=== PATIENT | male | born 1940 | race Caucasian/White ===

== ENCOUNTER 2019-05-27 11:31 | Outpatient (CLI) | payer MEDICARE, OTHER, SELFPAY ==
[2019-05-27 12:45] LABS: Eosinophils Absolute Auto 0.1 K/mm3 (0-0.3); Eosinophils Percent Auto 2.2 % (0-4.4); Hematocrit 37.6 % (42.0-52.0); Immature Granulocyte Absolute 0.02 K/mm3 (0.00-0.031); Immature Granulocyte Percent A 0.5 % (0-0.5); Lymphocytes Absolute Auto 1.12 K/mm3 (0.9-3.2); Lymphocytes Percent Auto 27.5 % (18.3-44.2); Mean Corpuscular HGB Conc 34.6 g/dl (32-36); Mean Corpuscular Hemoglobin 36.3 pg (26-34); Mean Platelet Volume 10.4 fl (7.4-10.4); Monocytes Absolute Auto 0.5 K/mm3 (0.1-0.6); Monocytes Percent Auto 11.5 % (2.6-8.5); Neutrophils Absolute Auto 2.3 K/mm3 (1.3-6.7); Neutrophils Percent Auto 57.3 % (45.5-73.1); Platelet Count Result 101 k/mm3 (150-375); Red Blood Count 3.58 M/mm3 (4.6-6.20); Red Cell Distribution Width 14.2 % (11.5-14.5); White Blood Count 4.1 K/mm3 (4.5-10.0)
[2019-05-27 12:54] LABS: Alanine Aminotransferase 16 U/L (4-50); Albumin Level 3.8 g/dL (3.5-5.1); Alkaline Phosphatase 61 U/L (38-126); Aspartate Amino Transferase 27 U/L (17-59); Bilirubin,Total 0.7 mg/dL (0.2-1.3); Blood Urea Nitrogen 17 mg/dL (9-20); Calcium 9.2 mg/dL (8.4-10.2); Carbon Dioxide 27 mmol/L (22-30); Chloride 103 mmol/L (98-107); Cholesterol 143 mg/dL (0-200); Estimated Glomerular Filt Rate > 60; Glucose 96 mg/dL (75-110); HDL Direct 60 mg/dL; Potassium 4.9 mmol/L (3.4-5.0); Sodium 141 mmol/L (137-145); Triglycerides 55 mg/dL (<150)
[2019-05-27 13:05] LABS: LDL Cholesterol Direct 78 mg/dL
[2019-05-27 13:23] LABS: Prostate Specific Antigen 0.4 ng/mL (< OR = 4.0)
[2019-05-27 14:00] LABS: Folic Acid > 20.0 ng/mL (2.76->20)
== END 2019-05-27 11:32 | disposition home or self-care (01) ==
PROVIDERS: PCP Internal Medicine; Visit Provider Internal Medicine
DX: D61.818 Other pancytopenia (principal); E03.9 Hypothyroidism, unspecified; E78.2 Mixed hyperlipidemia; Z12.5 Encounter for screening for malignant neoplasm of prostate
CPT/HCPCS: 36415; 80053; 80061; 82607; 82746; 84153; 84443; 85025; G0103

== ENCOUNTER 2019-08-19 11:48 | Outpatient (CLI) | payer MEDICARE, OTHER, SELFPAY ==
[2019-08-19 11:58] LABS: Basophils Percent Auto 0.5 % (0.2-1.2); Eosinophils Absolute Auto 0.2 K/mm3 (0-0.3); Eosinophils Percent Auto 2.9 % (0-4.4); Hematocrit 37.6 % (42.0-52.0); Hemoglobin 13.1 g/dL (14.0-18.0); Immature Granulocyte Absolute 0.02 K/mm3 (0.00-0.031); Immature Granulocyte Percent A 0.4 % (0-0.5); Lymphocytes Absolute Auto 1.69 K/mm3 (0.9-3.2); Lymphocytes Percent Auto 30.8 % (18.3-44.2); Mean Corpuscular HGB Conc 34.8 g/dl (32-36); Mean Corpuscular Hemoglobin 36.6 pg (26-34); Mean Platelet Volume 9.3 fl (7.4-10.4); Monocytes Absolute Auto 0.5 K/mm3 (0.1-0.6); Monocytes Percent Auto 9.5 % (2.6-8.5); Neutrophils Absolute Auto 3.1 K/mm3 (1.3-6.7); Neutrophils Percent Auto 55.9 % (45.5-73.1); Platelet Count Result 105 k/mm3 (150-375); Red Blood Count 3.58 M/mm3 (4.6-6.20); Red Cell Distribution Width 13.2 % (11.5-14.5); White Blood Count 5.5 K/mm3 (4.5-10.0)
[2019-08-19 12:02] LABS: Blood Urea Nitrogen 13 mg/dL (8-26); Carbon Dioxide 27 mmol/L (22-30); Chloride 103 mmol/L (98-109); Estimated Glomerular Filt Rate > 60; Glucose 99 mg/dL (70-105); Potassium 4.2 mmol/L (3.5-4.9); Sodium 141 mmol/L (138-146)
[2019-08-19 16:37] LABS: Alanine Aminotransferase 19 U/L (4-50); Alkaline Phosphatase 63 U/L (38-126); Aspartate Amino Transferase 30 U/L (17-59); Bilirubin,Total 0.7 mg/dL (0.2-1.3); Blood Urea Nitrogen 13 mg/dL (9-20); Calcium 8.5 mg/dL (8.4-10.2); Carbon Dioxide 28 mmol/L (22-30); Chloride 106 mmol/L (98-107); Estimated Glomerular Filt Rate > 60; Glucose 92 mg/dL (75-110); Potassium 4.2 mmol/L (3.4-5.0); Sodium 138 mmol/L (137-145)
== END 2019-08-19 11:49 | disposition home or self-care (01) ==
LOC: ANHLAB 11:50
PROVIDERS: PCP Internal Medicine; Visit Provider Internal Medicine Hematology & Oncology
DX: D61.818 Other pancytopenia (principal)
CPT/HCPCS: 36415; 80048; 80053; 85025

== ENCOUNTER 2019-12-31 01:14 | Outpatient (CLI) | payer MEDICARE, OTHER, SELFPAY ==
[2019-12-31 18:28] LABS: SARS-CoV-2 RNA PCR Negative
== END 2019-12-31 01:15 | disposition home or self-care (01) ==
LOC: ANHCOVIDDT 01:15
PROVIDERS: PCP Internal Medicine; Visit Provider Internal Medicine Critical Care Medicine
DX: R09.89 Other specified symptoms and signs involving the circulatory and respiratory systems (principal); Z20.828 Contact with and (suspected) exposure to other viral communicable diseases
CPT/HCPCS: 87635; C9803; U0003

== ENCOUNTER 2020-01-02 09:55 | Outpatient (CLI) | payer MEDICARE, OTHER, SELFPAY ==
--- NOTE | 2020-01-22 00:01 | SLEEP_ITS ---
NOCTURNAL POLYSOMNOGRAM DATE OF STUDY: 01/02/2020 REASON FOR THE STUDY: Hypersomnia. HISTORY: The patient is a 79-year-old man, 66 inches tall, weighing 200 pounds with a body mass index of 32.3. He has Alzheimer disease. Dr. Webber's note indicates that he snores at night, naps intermittently throughout the day, has multiple medical issues. This gentleman filled out most of his sleep survey. He does not have trouble sleeping with a cold, does not gasp for breath at night, does not have breathing problems at night witnessed by others and does not sweat excessively at night. He does not notice his heart pounding or beating irregularly at night. He occasionally falls asleep during the day, never while driving, never involuntarily, never with physical effort. He does not have loss of muscle tone with strong emotion. He is retired, does not have daytime difficulties due to excessive sleepiness. He does not feel paralyzed on waking or falling asleep. He does not have vivid dreamlike scenes upon awakening or falling asleep. He is never afraid to go to sleep. He denies nightmares. He does not recall his dreams. He denies racing thoughts, feelings of sadness, depression, anxiety, and does not have muscular tension or noticed parts of his body jerking. He does not kick at night. He denies crawly achy feelings in his legs. He does not have leg pain at night. He denies morning jaw pain and grinding his teeth at night. He is not bothered by pain during the day and does not wake up with pain during the night. He denies feeling stiff in the morning with sore achy muscles or pain in the neck and spine. He has memory problems. Bedtime is between 11 and 12 p.m., falling asleep quickly and apparently does not wake up during the night. He wakes through the morning somewhere between 9 and 11:00 a.m. Weekend is the same. He gets somewhere between 8 and 12 hours of sleep at night. He does take naps. A short nap may be refreshing. He feels good in the morning. MEDICAL COMORBIDITIES: Hypothyroidism, hypertension, myasthenia gravis. MEDICATIONS: 1. Azathioprine 50 mg daily for myasthenia gravis. 2. Aricept 10 mg for Alzheimer disease. 3. Isosorbide mononitrate 30 mg as needed for chest pain. 4. Synthroid daily. 5. Lisinopril 10 mg a day. 6. Simvastatin 20 mg a day. HABITS: Tobacco quit 50 years ago. Caffeine, 3 beverages a day. Alcohol, 2 beverages a day. DESCRIPTION OF THE STUDY: On the [place] Sleepiness Scale, the score is 5. This was conducted as a full night attended nocturnal polysomnogram using the [employer] Multiple Channel System including EOG, EEG, submental EMG, EKG, nasal and oral airflow using thermistors and nasal pressure sensors, chest and abdominal belts, body position data and pulse oximetry. The study was scored using [facility] guidelines. Duration of the study was 493 minutes. Sleep time was 416.5 minutes. Sleep efficiency was 84.5%. Sleep latency was normal at 17.3 minutes. REM latency was normal at 130.5 minutes. There were 16 awakenings and the patient spent 12.5% of the study awake after sleep onset, that was 59 minutes. Sleep architecture showed 8.4% stage 1 sleep, 63% stage 2 sleep. No stage 3 sleep and 16.2% stage REM. He spent 25.4% of this portion supine. The remainder was non-supine. Sleep architecture showed 5 REM episodes, all of them were rather small. There was some fragmentation of sleep. Overall the sleep architecture was relatively normal for the patient's age. The apnea-hypopnea index was 2.0. The obstructive index is 1.9, central index 0.1. In supine REM, he had 1 obstructive hypopnea. In non-supine REM, 3 obstructive hypopneas. In non-supine non-REM, he had 1 obstructive apnea, 1 central apnea, 1 obstructive hypopnea. In non-supine n
== END 2020-01-02 09:56 | disposition home or self-care (01) ==
LOC: ANHCSM 09:57
PROVIDERS: PCP Internal Medicine; Visit Provider Internal Medicine
DX: G47.10 Hypersomnia, unspecified (principal); Z68.32 Body mass index [BMI] 32.0-32.9, adult; I10 Essential (primary) hypertension; E78.5 Hyperlipidemia, unspecified; G70.00 Myasthenia gravis without (acute) exacerbation; G30.9 Alzheimer's disease, unspecified; F02.80 Dementia in other diseases classified elsewhere, unspecified severity, without behavioral disturbance, psychotic disturbance, mood disturbance, and anxiety
CPT/HCPCS: 95810

== ENCOUNTER 2020-02-18 15:05 | Outpatient (CLI) | payer MEDICARE, OTHER, SELFPAY ==
[2020-02-18 15:20] LABS: Basophils Absolute Auto 0.1 K/mm3 (0.0-0.1); Eosinophils Absolute Auto 0.2 K/mm3 (0-0.3); Eosinophils Percent Auto 3.1 % (0-4.4); Hematocrit 33.9 % (42.0-52.0); Immature Granulocyte Absolute 0.02 K/mm3 (0.00-0.031); Immature Granulocyte Percent A 0.4 % (0-0.5); Lymphocytes Absolute Auto 1.48 K/mm3 (0.9-3.2); Mean Corpuscular HGB Conc 35.4 g/dl (32-36); Mean Corpuscular Hemoglobin 34.7 pg (26-34); Mean Platelet Volume 9.6 fl (7.4-10.4); Monocytes Absolute Auto 0.5 K/mm3 (0.1-0.6); Monocytes Percent Auto 9.8 % (2.6-8.5); Neutrophils Absolute Auto 2.6 K/mm3 (1.3-6.7); Neutrophils Percent Auto 54.7 % (45.5-73.1); Platelet Count Result 84 k/mm3 (150-375); Red Blood Count 3.46 M/mm3 (4.6-6.20); Red Cell Distribution Width 13.9 % (11.5-14.5); White Blood Count 4.8 K/mm3 (4.5-10.0)
== END 2020-02-18 15:06 | disposition home or self-care (01) ==
LOC: ANHLAB 15:08
PROVIDERS: PCP Internal Medicine; Visit Provider Internal Medicine Hematology & Oncology
DX: D61.818 Other pancytopenia (principal)
CPT/HCPCS: 36415; 85025

== ENCOUNTER 2020-06-17 14:14 | Outpatient (CLI) | payer MEDICARE, OTHER, SELFPAY ==
[2020-06-17 14:29] LABS: Basophils Absolute Auto 0.1 K/mm3 (0.0-0.1); Eosinophils Absolute Auto 0.2 K/mm3 (0-0.3); Eosinophils Percent Auto 3.5 % (0-4.4); Hematocrit 38.8 % (42.0-52.0); Hemoglobin 13.5 g/dL (14.0-18.0); Immature Granulocyte Absolute 0.01 K/mm3 (0.00-0.031); Immature Granulocyte Percent A 0.2 % (0-0.5); Lymphocytes Absolute Auto 1.74 K/mm3 (0.9-3.2); Lymphocytes Percent Auto 34.2 % (18.3-44.2); Mean Corpuscular HGB Conc 34.8 g/dl (32-36); Mean Corpuscular Hemoglobin 33.6 pg (26-34); Mean Corpuscular Volume 96.5 fl (80-100); Mean Platelet Volume 9.4 fl (7.4-10.4); Monocytes Absolute Auto 0.6 K/mm3 (0.1-0.6); Neutrophils Absolute Auto 2.6 K/mm3 (1.3-6.7); Neutrophils Percent Auto 50.1 % (45.5-73.1); Platelet Count Result 111 k/mm3 (150-375); Red Blood Count 4.02 M/mm3 (4.6-6.20); Red Cell Distribution Width 13.9 % (11.5-14.5); White Blood Count 5.1 K/mm3 (4.5-10.0)
[2020-06-17 14:32] LABS: Blood Urea Nitrogen 13 mg/dL (8-26); Carbon Dioxide 29 mmol/L (22-30); Chloride 104 mmol/L (98-109); Estimated Glomerular Filt Rate > 60; Glucose 97 mg/dL (70-105); Potassium 3.5 mmol/L (3.5-4.9); Sodium 144 mmol/L (138-146)
[2020-06-17 17:00] LABS: Alanine Aminotransferase 18 U/L (4-50); Alkaline Phosphatase 67 U/L (38-126); Anion Gap 7 mmol/L (8-16); Aspartate Amino Transferase 29 U/L (17-59); Bilirubin,Total 0.6 mg/dL (0.2-1.3); Blood Urea Nitrogen 14 mg/dL (9-20); Calcium 8.8 mg/dL (8.4-10.2); Carbon Dioxide 30 mmol/L (22-30); Chloride 106 mmol/L (98-107); Estimated Glomerular Filt Rate > 60; Glucose 96 mg/dL (75-110); Potassium 3.7 mmol/L (3.4-5.0); Sodium 143 mmol/L (137-145)
== END 2020-06-17 14:15 | disposition home or self-care (01) ==
PROVIDERS: PCP Internal Medicine; Visit Provider Internal Medicine Hematology & Oncology
DX: D61.818 Other pancytopenia (principal)
CPT/HCPCS: 36415; 80048; 80053; 85025

== ENCOUNTER 2020-10-11 15:19 | Outpatient (CLI) | payer MEDICARE, OTHER, SELFPAY ==
--- NOTE | 2020-10-11 15:44 | ECG_ITS ---
Measurements Intervals [place] Rate: 98 P: UT: 0 QRS: -3 QRSD: 78 T: 15 QT: 370 QTc: 472 Interpretive Statements ATRIAL FIBRILLATION VENTRICULAR PREMATURE COMPLEX ABNORMAL ECG Electronically Signed On 10-11-2020 15:59:58 CDT by Sanjiv Miranda D.O.
== END 2020-10-11 15:20 | disposition home or self-care (01) ==
PROVIDERS: PCP Internal Medicine; Visit Provider Internal Medicine
DX: I10 Essential (primary) hypertension (principal); R94.31 Abnormal electrocardiogram [ECG] [EKG]
CPT/HCPCS: 93005

== ENCOUNTER 2020-12-21 14:31 | Outpatient (CLI) | payer MEDICARE, OTHER, SELFPAY ==
[2020-12-21 14:49] LABS: Blood Urea Nitrogen 15 mg/dL (8-26); Carbon Dioxide 28 mmol/L (22-30); Chloride 106 mmol/L (98-109); Estimated Glomerular Filt Rate 53; Glucose 90 mg/dL (70-105); Potassium 4.2 mmol/L (3.5-4.9); Sodium 142 mmol/L (138-146)
[2020-12-21 14:53] LABS: Basophils Absolute Auto 0.1 K/mm3 (0.0-0.1); Basophils Percent Auto 0.9 % (0.2-1.2); Eosinophils Absolute Auto 0.2 K/mm3 (0-0.3); Eosinophils Percent Auto 3.6 % (0-4.4); Hematocrit 37.8 % (42.0-52.0); Hemoglobin 13.1 g/dL (14.0-18.0); Immature Granulocyte Absolute 0.01 K/mm3 (0.00-0.031); Immature Granulocyte Percent A 0.2 % (0-0.5); Lymphocytes Absolute Auto 1.69 K/mm3 (0.9-3.2); Lymphocytes Percent Auto 30.2 % (18.3-44.2); Mean Corpuscular HGB Conc 34.7 g/dl (32-36); Mean Corpuscular Hemoglobin 31.9 pg (26-34); Mean Platelet Volume 9.4 fl (7.4-10.4); Monocytes Absolute Auto 0.6 K/mm3 (0.1-0.6); Monocytes Percent Auto 11.1 % (2.6-8.5); Platelet Count Result 118 k/mm3 (150-375); Red Blood Count 4.11 M/mm3 (4.6-6.20); Red Cell Distribution Width 13.2 % (11.5-14.5); White Blood Count 5.6 K/mm3 (4.5-10.0)
[2020-12-21 18:38] LABS: Alanine Aminotransferase 22 U/L (4-50); Albumin Level 3.9 g/dL (3.5-5.1); Alkaline Phosphatase 69 U/L (38-126); Anion Gap 7 mmol/L (8-16); Aspartate Amino Transferase 33 U/L (17-59); Bilirubin,Total 0.6 mg/dL (0.2-1.3); Blood Urea Nitrogen 17 mg/dL (9-20); Calcium 9.3 mg/dL (8.4-10.2); Carbon Dioxide 24 mmol/L (22-30); Chloride 109 mmol/L (98-107); Estimated Glomerular Filt Rate > 60; Glucose 95 mg/dL (65-110); Potassium 4.3 mmol/L (3.4-5.0); Sodium 140 mmol/L (137-145)
== END 2020-12-21 14:32 | disposition home or self-care (01) ==
PROVIDERS: PCP Internal Medicine; Visit Provider Internal Medicine Hematology & Oncology
DX: D61.818 Other pancytopenia (principal)
CPT/HCPCS: 36415; 80048; 80053; 85025; 85055

== ENCOUNTER 2021-09-01 08:54 | Outpatient (CLI) | payer MEDICARE, OTHER, SELFPAY ==
[2021-09-01 09:43] LABS: Basophils Absolute Auto 0.1 K/mm3 (0.0-0.1); Basophils Percent Auto 0.9 % (0.2-1.2); Eosinophils Absolute Auto 0.3 K/mm3 (0-0.3); Eosinophils Percent Auto 4.5 % (0-4.4); Hematocrit 39.9 % (42.0-52.0); Hemoglobin 13.6 g/dL (14.0-18.0); Immature Granulocyte Absolute 0.02 K/mm3 (0.00-0.031); Immature Granulocyte Percent A 0.3 % (0-0.5); Immature Platelet Fraction Pct 3.2 % (0.9-11.2); Lymphocytes Percent Auto 31.2 % (18.3-44.2); Mean Corpuscular HGB Conc 34.1 g/dl (32-36); Mean Corpuscular Hemoglobin 32.1 pg (26-34); Mean Corpuscular Volume 94.1 fl (80-100); Mean Platelet Volume 9.8 fl (7.4-10.4); Monocytes Absolute Auto 0.6 K/mm3 (0.1-0.6); Monocytes Percent Auto 8.7 % (2.6-8.5); Neutrophils Absolute Auto 3.5 K/mm3 (1.3-6.7); Neutrophils Percent Auto 54.4 % (45.5-73.1); Platelet Count Result 142 k/mm3 (150-375); Red Blood Count 4.24 M/mm3 (4.6-6.20); Red Cell Distribution Width 13.6 % (11.5-14.5); White Blood Count 6.4 K/mm3 (4.5-10.0)
[2021-09-01 10:05] LABS: Alanine Aminotransferase 19 U/L (6-50); Albumin Level 4.3 g/dL (3.5-5.1); Alkaline Phosphatase 65 U/L (38-126); Anion Gap 6 mmol/L (8-16); Aspartate Amino Transferase 29 U/L (17-59); Blood Urea Nitrogen 18 mg/dL (9-20); Calcium 8.9 mg/dL (8.4-10.2); Carbon Dioxide 26 mmol/L (22-30); Chloride 106 mmol/L (98-107); Cholesterol 178 mg/dL (0-200); Estimated Glomerular Filt Rate > 60; Glucose 98 mg/dL (65-110); HDL Direct 41 mg/dL; Potassium 4.4 mmol/L (3.4-5.0); Sodium 138 mmol/L (137-145); Triglycerides 101 mg/dL (<150)
[2021-09-01 10:18] LABS: LDL Cholesterol Direct 104 mg/dL
[2021-09-01 10:37] LABS: Prostate Specific Antigen 0.3 ng/mL (< OR = 4.0)
== END 2021-09-01 08:55 | disposition home or self-care (01) ==
LOC: ANHLAB 08:58
PROVIDERS: PCP Internal Medicine; Visit Provider Internal Medicine
DX: D61.818 Other pancytopenia (principal); E03.9 Hypothyroidism, unspecified; E55.9 Vitamin D deficiency, unspecified; E78.2 Mixed hyperlipidemia; F03.90 Unspecified dementia, unspecified severity, without behavioral disturbance, psychotic disturbance, mood disturbance, and anxiety; I10 Essential (primary) hypertension; I25.10 Atherosclerotic heart disease of native coronary artery without angina pectoris; I48.0 Paroxysmal atrial fibrillation; Z12.5 Encounter for screening for malignant neoplasm of prostate
CPT/HCPCS: 36415; 80053; 80061; 82306; 84153; 84443; 85025; 85055; G0103

== ENCOUNTER 2021-09-19 14:51 | Outpatient (CLI) | payer MEDICARE, OTHER, SELFPAY ==
[2021-09-19 15:05] LABS: Basophils Absolute Auto 0.1 K/mm3 (0.0-0.1); Basophils Percent Auto 0.9 % (0.2-1.2); Eosinophils Absolute Auto 0.3 K/mm3 (0-0.3); Eosinophils Percent Auto 4.8 % (0-4.4); Hematocrit 38.5 % (42.0-52.0); Hemoglobin 13.2 g/dL (14.0-18.0); Immature Granulocyte Absolute 0.03 K/mm3 (0.00-0.031); Immature Granulocyte Percent A 0.5 % (0-0.5); Lymphocytes Absolute Auto 2.12 K/mm3 (0.9-3.2); Mean Corpuscular HGB Conc 34.3 g/dl (32-36); Mean Corpuscular Hemoglobin 32.2 pg (26-34); Mean Corpuscular Volume 93.9 fl (80-100); Mean Platelet Volume 9.6 fl (7.4-10.4); Monocytes Absolute Auto 0.7 K/mm3 (0.1-0.6); Monocytes Percent Auto 10.9 % (2.6-8.5); Neutrophils Absolute Auto 3.2 K/mm3 (1.3-6.7); Neutrophils Percent Auto 49.9 % (45.5-73.1); Platelet Count Result 131 k/mm3 (150-375); Red Cell Distribution Width 13.5 % (11.5-14.5); White Blood Count 6.4 K/mm3 (4.5-10.0)
[2021-09-19 15:11] LABS: Blood Urea Nitrogen 18 mg/dL (8-26); Carbon Dioxide 26 mmol/L (22-30); Chloride 107 mmol/L (98-109); Estimated Glomerular Filt Rate 53; Glucose 87 mg/dL (70-105); Ionized Calcium (POC) 1.18 mmol/L (1.11-1.31); Sodium 141 mmol/L (138-146)
[2021-09-19 16:50] LABS: Alanine Aminotransferase 16 U/L (6-50); Albumin Level 4.3 g/dL (3.5-5.1); Alkaline Phosphatase 60 U/L (38-126); Anion Gap 5 mmol/L (8-16); Aspartate Amino Transferase 25 U/L (17-59); Bilirubin,Total 0.6 mg/dL (0.2-1.3); Blood Urea Nitrogen 18 mg/dL (9-20); Calcium 8.6 mg/dL (8.4-10.2); Carbon Dioxide 26 mmol/L (22-30); Chloride 109 mmol/L (98-107); Estimated Glomerular Filt Rate 58; Glucose 91 mg/dL (65-110); Sodium 140 mmol/L (137-145)
== END 2021-09-19 14:52 | disposition home or self-care (01) ==
LOC: ANHLAB 14:53
PROVIDERS: PCP Internal Medicine; Visit Provider Internal Medicine Hematology & Oncology
DX: D61.818 Other pancytopenia (principal)
CPT/HCPCS: 36415; 80047; 80053; 85025

== ENCOUNTER 2021-12-14 08:52 | Outpatient (CLI) | payer MEDICARE, OTHER, SELFPAY ==
--- NOTE | ~2021-12-14 | CT_ITS ---
EXAMINATION:CT chest high resolution wo il DATE: 12/14/2021 09:13 INDICATION: Dyspnea. TECHNIQUE: Computed tomography (CT) of the chest was performed without intravenous contrast. Automate d exposure control and iterative reconstruction technique were employed. The dose-length product (DLP ) was 453.51 mGy-cm. COMPARISON: None. FINDINGS: There is moderate emphysema. There is widespread septal thickening in the lungs with a nikole pheral and lower lung predominance associated with groundglass opacities. There are areas of honeycom alonso in all lobes. No pleural effusion. There is left atrial enlargement of the heart. There are oneida nary artery calcifications. No pericardial effusion. There is mild mediastinal lymphadenopathy, likel y reactive. The liver demonstrates surface nodularity, consistent with cirrhosis. Calcifications in t he spleen are consistent with old granulomatous disease. There is moderate thoracic spondylosis. Ther e is a chronic compression fracture of T3. IMPRESSION: 1. Diffuse lung disease, likely a combination of moderate emphysema and chronic interstitial lung dis ease in a pattern of usual interstitial pneumonia (UIP). 2. Cirrhosis of the liver. Reviewed, dictated and finalized at location A. IMPRESSION: 1. Diffuse lung disease, likely a combination of moderate emphysema and chronic interstitial lung disease in a pattern of usual interstitial pneumonia (UIP). 2. Cirrhosis of the liver.
--- NOTE | 2021-12-14 14:32 | WPDSIXMINUTE ---
Six Minute Walk Procedure Procedure Performed Pulmonary Stress Test (6 min walk) Six Minute Walk Six Minute Walk: This is a 6 minute walk test. The test was performed and interpreted in accordance with the 2014 ERS/ATS task force guidelines. Findings: The patient's resting room air oxygen saturation measured by pulse oximetry was 98% and heart rate was 74 bpm. Patient ambulated for 274 meters and oxygen saturation remained 89 to 98%. Heart rate at the end of the study was 103 bpm. The patient did not qualify for supplemental oxygen at rest or with ambulation. There are no prior studies for comparison.
--- NOTE | 2021-12-14 14:33 | WPDPFTINT ---
PFT Procedure Performed PFT Procedure Performed Spirometry with Pre/Post Bronchodilator Plethysmography (Lung Vol) Diffusing Cap (DLCO) Flow Vol Loop PFT Interpretation This is a pulmonary function test with pre and post-bronchodilator spirometry, plethysmography and diffusing capacity. The test was performed and results interpreted in accordance with the 2019 and 2005 ATS/ERS Task Force guidelines respectively using the Global Lung Function Initiative-2012 reference equations. Patient demonstrated good effort and cooperation. Reproducibility criteria were met. The quality of the pre bronchodilator spirometry maneuver was Grade B and post bronchodilator spirometry maneuver was Grade B. Findings: Spirometry: There is decreased maximal expiratory airflow at all lung volumes with concave expiratory flow tracing. The pre bronchodilator FVC is 2.56 L, 75% predicted. The pre bronchodilator FEV1 is 1.68 L, 65% predicted. The pre bronchodilator FEV1: FVC ratio 66%. The post bronchodilator FVC is 2.90 L, representing a 14% increase. The post bronchodilator FEV1 is 1.93 L, representing a 15% increase. The post bronchodilator FEV1: FVC ratio 67%. Plethysmography: The total lung capacity is 4.71 L, 75% predicted. The functional residual capacity is 2.57 L, 77% predicted. The residual volume is 2.15 L, 89% predicted. Diffusion capacity: The diffusing capacity unadjusted for hemoglobin and carboxyhemoglobin is 8.0, 36% predicted. The diffusing capacity adjusted for alveolar volume is 2.25, 58% predicted. Impression: There is a moderate obstructive abnormality with significant improvement after inhaling a single dose of albuterol. The lung volumes are normal. The diffusing capacity unadjusted for hemoglobin and carboxyhemoglobin is severely decreased and remains moderately decreased when adjusted for alveolar volume. There are no prior studies for comparison
== END 2021-12-14 08:53 | disposition home or self-care (01) ==
PROVIDERS: PCP Internal Medicine; Visit Provider Internal Medicine Pulmonary Disease
DX: R06.00 Dyspnea, unspecified (principal); R94.2 Abnormal results of pulmonary function studies; K74.69 Other cirrhosis of liver; R91.8 Other nonspecific abnormal finding of lung field
CPT/HCPCS: 71250; 94060; 94618; 94726; 94729

== ENCOUNTER 2021-12-29 14:49 | Outpatient (CLI) | payer MEDICARE, OTHER, SELFPAY ==
[2021-12-29 15:18] LABS: Appearance Urine Slightly Cloudy (Clear); Bilirubin Urine 1+ (Negative); Blood Urine 1+ (Negative); Color Urine Yellow (Yellow); Glucose Urine UA Negative (Negative); Ketones Urine 1+ mg/dL (Negative); Leukocyte Esterase Ur Negative LEU/UL (Negative); Nitrate Urine Negative (Negative); Specific Grav Ur 1.025 (1.001-1.035)
[2021-12-29 15:23] LABS: Bacteria Urine Trace /hpf; Mucus Urine Few /lpf; Squamous Epithelial Cell Urine Occasional /hpf (Few); WBC Urine 16-20 /hpf
[2021-12-29 15:25] LABS: Add Urine Microscopic? YES
[2021-12-29 15:26] LABS: Protein Urine 1+ mg/dL (Negative)
== END 2021-12-29 14:50 | disposition home or self-care (01) ==
PROVIDERS: PCP Internal Medicine; Visit Provider Internal Medicine
DX: R82.998 Other abnormal findings in urine (principal)
CPT/HCPCS: 81001; 87086; 87088

== ENCOUNTER 2022-03-14 11:36 | Inpatient (IN) | payer MEDICARE, OTHER, SELFPAY ==
[2022-03-14] VITALS (33 sets, daily range): BP systolic 111–164; BP diastolic 71–93; PULSE 88–139; RESP 16–25; TEMP 36.8–37.1; O2SAT 86–100; BMI 32.1
--- NOTE | ~2022-03-14 | XR_ITS ---
EXAMINATION: XR chest 2V DATE: 03/14/2022 12:11 INDICATION: Cough. Fever. TECHNIQUE: Frontal and lateral views of the chest were obtained. COMPARISON: Chest 2 views 06/28/2018, chest CT 12/14/2021 FINDINGS: There is a chronic diffuse interstitial pattern in the lungs. A calcified left lung nodule is consistent with old granulomatous disease. No pleural effusion or pneumothorax. Cardiomegaly is no avril. Surgical clips in the right upper quadrant are likely from cholecystectomy. IMPRESSION: 1. Chronic interstitial lung disease with mild worsening from 06/28/2018. 2. Cardiomegaly. Reviewed, dictated and finalized at location A. IFIED MAINTENANCE WELDER
[2022-03-14 12:29] LABS: Influenza A QL RT-PCR Positive (Negative); Influenza B QL RT-PCR Negative (Negative); SARS-CoV-2 RNA PCR Negative
--- NOTE | 2022-03-14 18:08 | PC.NURSE ---
Brought to ED by daughter for low SPO2 at home. Reports pt has had flu like s/s since Sunday. Pt has known dementia and is A/O x 1
--- NOTE | 2022-03-14 18:21 | ED.GENADULT ---
HPI - General Adult General Chief complaint: Shortness of Breath/Dyspnea Stated complaint: SOB Time Seen by Provider: 03/14/22 18:10 History of Present Illness HPI narrative: This is a 81-year-old male with history of COPD and Alzheimer's presenting ED with difficulty breathing. The patient's daughters at bedside and she is his primary comfort advisor. She says he has been appearing short of breath over the last week. She has seen pulse ox is as low as 80-82 at the house. She has been working with his carpet mechanic to try to treat him outpatient however if down the point where they are uncomfortable treating him further at home. The patient himself is denying any issues. Per the daughter he has been compliant with his medications, he has had a significant amount of coughing with sputum. Denies other complaints. Related Data Home Medications Medication Instructions Recorded Confirmed mecobalamin (vitamin B12) 1,000 1,000 mcg sublingual DAILY 05/27/19 01/27/22 mcg disintegrating tablet,sublingual multivitamin 1 tablet PO DAILY 05/27/19 01/27/22 simvastatin 20 mg tablet 40 mg PO DAILY 12/26/21 01/27/22 Allergies Allergy/AdvReac Type Severity Reaction Status Date / Time NKA Allergy Unknown Unknown Uncoded 01/27/22 10:11 Review of Systems Review of Systems: CONSTITUTIONAL: Denies night sweats. EYES: No eye pain ENT: Denies rhinorrhea CARDIOVASCULAR: Denies palpitations RESPIRATORY: Denies hemoptysis GASTROINTESTINAL: Denies hematemesis GENITOURINARY: Denies hematuria. SKIN: Denies rash MUSCULOSKELETAL: Denies myalgia. NEUROLOGIC: Denies weakness. PSYCHIATRIC: Denies delusions PMFSH Past Medical History Medical History Afib Combined pulmonary fibrosis and emphysema (CPFE) Dementia Hypothyroidism Myasthenia gravis Surgical History Surgical History Hx of cardiac cath Family History Family History Grandparent Family history of Alzheimer's disease Mother Family history of Alzheimer's disease Social History Social History Smoking packs per day: 1 Smoking cigarettes per day: 20.0 Years smoked: 20 Smoking pack-years: 20.00 Smoking status: Never smoker Tobacco type: cigarettes Second hand tobacco smoke exposure: Yes Smoking end date: 04/16/76 Alcohol intake: former Alcohol use details: Social Substance use: never Substance use type: does not use Exam Narrative: APPEARANCE: No apparent distress. patient appears stated age. He is accompanied by his daughter Head: atraumatic. EYES: EOMI, NOSE: Atraumatic NECK: Trachea midline RESPIRATORY: 3-4 word dyspnea. Increased work of breathing. Wheezing in all sims CARDIOVASCULAR: irregular rhythm, normal rate, no peripheral edema ABDOMINAL: Non-distended, no guarding or rebound MUSCULOSKELETAl: No obvious deformities NEURO: Alert. Moving 4/4 extremities SKIN:: Warm, dry. Normal color PSYCHIATRIC: Normal affect Course Vital Signs Vital signs: Vital Signs Temperature 98.2 F 03/14/22 11:37 Pulse Rate 88 03/14/22 11:37 Respiratory Rate 16 03/14/22 11:37 Blood Pressure 111/72 03/14/22 11:37 Pulse Oximetry 94 03/14/22 11:37 Oxygen Delivery Room Air 03/14/22 11:37 Temperature 98.5 F 03/14/22 18:09 Pulse Rate 104 H 03/14/22 19:00 Respiratory Rate 20 03/14/22 19:00 Blood Pressure 164/93 H 03/14/22 18:09 Pulse Oximetry 96 03/14/22 19:00 Oxygen Delivery Room Air 03/14/22 18:07 Medical Decision Making [facility] Narrative Medical decision making narrative: this is a 81-year-old male history of COPD and poor respiratory status at baseline presenting with difficulty breathing. He has wheezing in all sims. He will be given COPD treatment. X-rays and labs will be orde
[2022-03-14] MEDS: ALBUTEROL SULFATE NEB 2.5 MG/3 ML INH 15 MG INHALATION (18:33)
[2022-03-14] MEDS: IPRATROPIUM BR 0.02% INH SOLN 0.5 MG/2.5 ML VIAL 1.5 MG INHALATION (18:34)
[2022-03-14] MEDS: MAGNESIUM SULF 2 GM/WATER 50ML 2 GM/50 ML BAG IVPB (18:38)
[2022-03-14] MEDS: methylPREDNISolone SOD SUCC 125 MG VIAL IV PUSH (18:39)
[2022-03-14 18:44] LABS: Basophils Percent Auto 0.7 % (0.2-1.2); Eosinophils Absolute Auto 0.1 K/mm3 (0-0.3); Eosinophils Percent Auto 2.4 % (0-4.4); Hematocrit 42.8 % (42.0-52.0); Hemoglobin 14.8 g/dL (14.0-18.0); Immature Granulocyte Absolute 0.02 K/mm3 (0.00-0.031); Immature Granulocyte Percent A 0.3 % (0-0.5); Immature Platelet Fraction Pct 3.6 % (0.9-11.2); Lymphocytes Percent Auto 31.3 % (18.3-44.2); Mean Corpuscular HGB Conc 34.6 g/dl (32-36); Mean Corpuscular Hemoglobin 32.2 pg (26-34); Mean Corpuscular Volume 93.2 fl (80-100); Mean Platelet Volume 9.6 fl (7.4-10.4); Monocytes Absolute Auto 0.8 K/mm3 (0.1-0.6); Monocytes Percent Auto 13.2 % (2.6-8.5); Neutrophils Percent Auto 52.1 % (45.5-73.1); Platelet Count Result 138 k/mm3 (150-375); Red Blood Count 4.59 M/mm3 (4.6-6.20); Red Cell Distribution Width 13.8 % (11.5-14.5); White Blood Count 5.8 K/mm3 (4.5-10.0)
[2022-03-14 18:52] LABS: Anion Gap 8 mmol/L (8-16); Blood Urea Nitrogen 24 mg/dL (9-20); Calcium 8.7 mg/dL (8.4-10.2); Carbon Dioxide 23 mmol/L (22-30); Chloride 107 mmol/L (98-107); Estimated CRCL calculation 52 ml/min; Estimated Glomerular Filt Rate > 60; Glucose 99 mg/dL (65-110); INR 1.4; Magnesium 2.3 mg/dL (1.6-2.3); Potassium 4.1 mmol/L (3.4-5.0); Prothrombin Time 16.4 Seconds (11.1-14.7); Sodium 138 mmol/L (137-145)
--- NOTE | 2022-03-14 21:06 | ECG_ITS ---
Measurements Intervals [place] Rate: 106 P: MA: 0 QRS: -12 QRSD: 90 T: 0 QT: 252 QTc: 336 Interpretive Statements ATRIAL FIBRILLATION WITH RAPID VENTRICULAR RESPONSE LEFT VENTRICULAR HYPERTROPHY WITH ST-T CHANGE BORDERLINE R WAVE PROGRESSION, ANTERIOR LEADS BORDERLINE ST-T WAVE ABNORMALITY- INF/LAT LEADS BASELINE ARTIFACT- I, II, AVR, AVL, AVF ABNORMAL ECG COMPARED TO ECG 10/11/2020 15:55:55 NO SIGNIFICANT CHANGES Electronically Signed On 03-14-2022 23:00:54 SOCIAL [employer]IA MARKETING ANALYST by Sanjiv Miranda D.O.
--- NOTE | 2022-03-14 22:25 | PM.IMHP ---
H&P: HPI History of Present Illness Date/Time: 03/14/22 22:25 Chief Complaint: shortness of breath Narrative: this is a 81-year-old male with past medical history significant for Alzheimer's disease, atrial fibrillation, rate controlled anticoagulated, dyslipidemia, COPD/emphysema. Patient is unable to give any history due to his dementia and altered mental status according to daughter who is at bedside patient has been having shortness of breath and has been sleeping and staying in bed a lot his usually very active with his girlfriend whom he spend Thanksgiving dinner with has had chills and fevers poor appetite. Oxygen saturation was low as well when daughter checked it at home it was at 89%. EMS was called and patient was brought to the emergency room were patient was found to have a temp preliminary workup was significant for patient tested positive for influenza type A. patient is been admitted for further evaluation management and treatment. Review of Systems Review of Systems: ROS unobtainable: Yes unobtainable due to medical condition ( Alzheimer's) and unobtainable due to mental status PMFSH Past Medical History Medical History Afib Combined pulmonary fibrosis and emphysema (CPFE) Dementia Hypothyroidism Myasthenia gravis Surgical History Surgical History Hx of cardiac cath Family History Family History (Updated 03/14/22 @ 23:39 by Nubia Elam RN) Grandparent Family history of Alzheimer's disease Mother COPD (chronic obstructive pulmonary disease) Hypothyroidism Colon cancer Sibling Hypothyroidism Colon cancer Stomach cancer Social History Social History Smoking packs per day: 1 Smoking cigarettes per day: 20.0 Years smoked: 20 Smoking pack-years: 20.00 Smoking status: Former smoker Second hand tobacco smoke exposure: Yes Smoking end date: 04/16/77 Alcohol intake: former Alcohol use details: Social Substance use: never Substance use type: does not use Spiritual care concerns: No Meds Home Medications and Allergies Home Medications Medication Instructions Recorded Confirmed Type mecobalamin (vitamin B12) 1,000 1,000 mcg sublingual DAILY 05/27/19 03/15/22 History mcg disintegrating tablet,sublingual apixaban 5 mg tablet (Eliquis) 5 mg PO BID #60 tabs 10/12/20 03/15/22 Rx isosorbide mononitrate 60 mg 60 mg PO DAILY #90 tabs 11/21/21 03/15/22 Rx tablet,extended release 24 hr levothyroxine 150 mcg tablet 150 mcg PO DAILY #90 tabs 11/21/21 03/15/22 Rx simvastatin 20 mg tablet 40 mg PO DAILY 12/26/21 03/15/22 History amlodipine 2.5 mg tablet 2.5 mg PO DAILY 03/15/22 03/15/22 History donepezil 10 mg tablet (Aricept) 10 mg PO DAILY 03/15/22 03/15/22 History lisinopril 20 mg tablet 20 mg PO DAILY 03/15/22 03/15/22 History pyridostigmine bromide 60 mg tablet 60 mg PO BID 03/15/22 03/15/22 History umeclidinium 62.5 mcg-vilanterol 1 inh inhalation DAILY 03/15/22 03/15/22 History 25 mcg/actuation powdr for inhalation (Anoro Ellipta) Allergies Allergy/AdvReac Type Severity Reaction Status Date / Time No Known Allergies Allergy Verified 03/15/22 13:45 Vital Signs Vital Signs - 24 hr 03/14/22 11:37 03/14/22 18:07 03/14/22 18:09 Temperature 98.2 F 98.5 F Pulse Rate 88 92 Respiratory Rate 16 24 H Blood Pressure 111/72 164/93 H Pulse Oximetry 94 95 Oxygen Delivery Room Air Room Air 03/14/22 18:30 03/14/22 18:07 03/14/22 18:08 Temperature Pulse Rate 98 91 94 Respiratory Rate 25 H 20 22 H Blood Pressure 164/93 H Pulse Oximetry 86 L 94 Oxygen Delivery 03/14/22 18:18 03/14/22 18:30 03/14/22 18:45 Temperature Pulse Rate 99 89 91 Respiratory Rate 20 22 H 17 Blood Pressure Pulse Oximetry 94 100 Oxygen Delivery 03/14/22 19:00 [facility]
[2022-03-14 22:27] LABS: Troponin I < 0.012 ng/mL (0.000-0.034)
--- NOTE | 2022-03-14 23:36 | ADMGEN ---
This patient, Duane Saunders, was admitted to [facility] Surg Room 333-01. Patient/family oriented to hospital policies and general routines including ID bracelet, bed and alarms, visiting hours, pain management, procedures, bathroom and other care routines, personal items, smoking policy, room service/diet, and visiting hours. Information on how to activate the Rapid Response Team has been discussed. Patient/Family are encouraged to report perceived risks to care and to ask questions if they do not understand what they are told or what they should do.
[2022-03-15] VITALS (8 sets, daily range): BP systolic 143–152; BP diastolic 78–90; PULSE 87–131; RESP 16–20; TEMP 36.1–36.8; O2SAT 92–95
[2022-03-15 02:36] LABS: NT Pro B Type Natriuretic Pept 502 pg/mL (5-100)
[2022-03-15 02:37] LABS: Troponin I < 0.012 ng/mL (0.000-0.034)
[2022-03-15] MEDS: LEVOTHYROXINE SODIUM 150 MCG TABLET PO (06:26)
[2022-03-15] MEDS: SIMVASTATIN 20 MG TABLET 40 MG PO (08:33)
[2022-03-15] MEDS: DONEPEZIL HCL 10 MG TABLET PO (08:33)
[2022-03-15] MEDS: APIXABAN 5 MG TABLET PO ×2 (08:34→22:13)
[2022-03-15] MEDS: amLODIPine BESYLATE 2.5 MG TABLET PO (08:34)
[2022-03-15] MEDS: lisinopriL 20 MG TABLET PO (08:34)
[2022-03-15] MEDS: pyRIDostigmine bromide 60 MG TABLET PO ×2 (08:34→17:10)
[2022-03-15] MEDS: ISOSORBIDE MONONITRATE 60 MG TAB.ER.24H PO (08:34)
[2022-03-15] MEDS: CYANOCOBALAMIN 1,000 MCG TABLET 1000 MCG PO (08:34)
[2022-03-15] MEDS: UMECLIDINIUM/VILANTEROL 62.5-25 MCG ELLIPTA 1 PUFF INHALATION (09:25)
--- NOTE | 2022-03-15 10:43 | PC.NURSE ---
bladder scan showing 375. patient states that he recently urinated and does not need to at this time. patient assisted to the bathroom to try and patient did not have to urinate at this time. Message left on Dr. Laboykeys phone.
--- NOTE | 2022-03-15 11:24 | PM.IMPN ---
Progress Note: A&P Assessment and Plan (1) COPD (chronic obstructive pulmonary disease): Code(s): J44.9 - Chronic obstructive pulmonary disease, unspecified Status: Acute Assessment and Plan: Steroids, nebulizers (2) Influenza: Code(s): J11.1 - Influenza due to unidentified influenza virus with other respiratory manifestations Status: Acute Assessment and Plan: Tamiflu (3) Combined pulmonary fibrosis and emphysema (CPFE): Code(s): J43.9 - Emphysema, unspecified; J84.10 - Pulmonary fibrosis, unspecified Status: Acute Assessment and Plan: As above (4) CAD (coronary artery disease): Qualifiers: Coronary Disease-Associated Artery/Lesion type: due to lipid rich plaque Qualified Code(s): I25.10 - Atherosclerotic heart disease of [place] coronary artery without angina pectoris; I25.83 - Coronary atherosclerosis due to lipid rich plaque Code(s): I25.10 - Atherosclerotic heart disease of [place] coronary artery without angina pectoris Status: Acute (5) Alzheimer's dementia: Code(s): G30.9 - Alzheimer's disease, unspecified; F02.80 - Dementia in other diseases classified elsewhere, unspecified severity, without behavioral disturbance, psychotic disturbance, mood disturbance, and anxiety Status: Acute Assessment and Plan: At baseline Plan DVT prophylaxis with Eliquis GI prophylaxis with PPI Code status full code Subjective Date/time seen: 03/15/22 11:24 Interval history: No overnight events noted. No chest pain or shortness of breath. No nausea, vomiting or diarrhea. No fevers or chills. Patient pleasantly confused, case discussed with family bedside. Review of Systems Review of Systems: ROS unobtainable: Yes unobtainable due to mental status Exam Narrative: General: No acute distress, alert and oriented per baseline HEENT: Atraumatic, normocephalic, mucous membranes moist CV: Regular rate and rhythm, S1, S2 Lungs: Clear to auscultation bilaterally, no rales or crackles noted, no wheezes, good air entry Abdomen: Soft, nontender, nondistended Extremities: Normal to inspection Skin: No rashes noted, no lesions or wounds seen Psych: Euthymic, normal affect Objective Data Vital Signs Vital Signs: Vital Signs - 24 hr 03/14/22 11:37 03/14/22 18:07 03/14/22 18:09 Temperature 98.2 F 98.5 F Pulse Rate 88 92 Respiratory Rate 16 24 H Blood Pressure 111/72 164/93 H Pulse Oximetry 94 95 Oxygen Delivery Room Air Room Air 03/14/22 18:30 03/14/22 18:07 03/14/22 18:08 Temperature Pulse Rate 98 91 94 Respiratory Rate 25 H 20 22 H Blood Pressure 164/93 H Pulse Oximetry 86 L 94 Oxygen Delivery 03/14/22 18:18 03/14/22 18:30 03/14/22 18:45 Temperature Pulse Rate 99 89 91 Respiratory Rate 20 22 H 17 Blood Pressure Pulse Oximetry 94 100 Oxygen Delivery 03/14/22 19:00 03/14/22 22:53 03/14/22 19:15 Temperature 98.6 F Pulse Rate 104 H 105 H Respiratory Rate 20 18 Blood Pressure Pulse Oximetry 96 Oxygen Delivery 03/14/22 19:30 03/14/22 19:33 03/14/22 19:45 Temperature Pulse Rate 127 H 116 H 114 H Respiratory Rate 20 18 22 H Blood Pressure 150/81 H Pulse Oximetry 90 94 Oxygen Delivery 03/14/22 19:46 03/14/22 20:00 03/14/22 20:01 Temperature Pulse Rate 117 H 113 H 125 H Respiratory Rate 21 H 17 17 Blood Pressure 148/80 H 136/73 Pulse Oximetry 93 93 Oxygen Delivery 03/14/22 20:15 03/14/22 20:16 03/14/22 20:31 Temperature Pulse Rate 126 H 118 H 119 H Respiratory Rate Blood Pressure 147/74 H 119/71 Pulse Oximetry Oxygen Delivery 03/14/22 20:32 03/14/22 21:04 03/14/22 21:15 Temperature Pulse Rate 139 H 111 H 120 H Respiratory Rate Blood Pressure Pulse Oximetry Oxygen Delivery 03/14/22 21:16 03/14/22 21:30 03/14/22 21:45 Temperature Pulse Rate 108 H 103 H 105 H Respiratory Rate
[2022-03-15] MEDS: PANTOPRAZOLE SODIUM IV 40 MG VIAL IV PUSH (12:32)
[2022-03-15] MEDS: methylPREDNISolone SOD SUCC 125 MG VIAL 60 MG IV PUSH ×3 (12:32→23:52)
[2022-03-15] MEDS: IPRATROPIUM BR 0.02% INH SOLN 0.5 MG/2.5 ML VIAL INHALATION (16:17)
[2022-03-15] MEDS: OSELTAMIVIR PHOSPHATE 30 MG CAPSULE PO (22:13)
[2022-03-16] VITALS (7 sets, daily range): BP systolic 144; BP diastolic 98; PULSE 68–109; RESP 16–24; TEMP 36.4; O2SAT 92–96
[2022-03-16] MEDS: methylPREDNISolone SOD SUCC 125 MG VIAL 60 MG IV PUSH ×2 (05:39→12:16)
[2022-03-16] MEDS: LEVOTHYROXINE SODIUM 150 MCG TABLET PO (05:39)
[2022-03-16] MEDS: UMECLIDINIUM/VILANTEROL 62.5-25 MCG ELLIPTA 1 PUFF INHALATION (08:24)
[2022-03-16] MEDS: IPRATROPIUM BR 0.02% INH SOLN 0.5 MG/2.5 ML VIAL INHALATION (08:24)
[2022-03-16] MEDS: LEVALBUTEROL NEB 1.25 MG/3 ML 0.63 MG INHALATION (08:24)
[2022-03-16] MEDS: CYANOCOBALAMIN 1,000 MCG TABLET 1000 MCG PO (09:24)
[2022-03-16] MEDS: pyRIDostigmine bromide 60 MG TABLET PO (09:24)
[2022-03-16] MEDS: DONEPEZIL HCL 10 MG TABLET PO (09:24)
[2022-03-16] MEDS: lisinopriL 20 MG TABLET PO (09:24)
[2022-03-16] MEDS: APIXABAN 5 MG TABLET PO (09:24)
[2022-03-16] MEDS: OSELTAMIVIR PHOSPHATE 30 MG CAPSULE PO (09:24)
[2022-03-16] MEDS: SIMVASTATIN 20 MG TABLET 40 MG PO (09:24)
[2022-03-16] MEDS: ISOSORBIDE MONONITRATE 60 MG TAB.ER.24H PO (09:24)
[2022-03-16] MEDS: amLODIPine BESYLATE 2.5 MG TABLET PO (09:24)
[2022-03-16] MEDS: PANTOPRAZOLE SODIUM IV 40 MG VIAL IV PUSH (09:25)
--- NOTE | 2022-03-16 10:02 | PCRCNOTE ---
HOME O2 EVAL COMPLETE, NO REQUIREMENTS
--- NOTE | 2022-03-16 10:31 | PM.IMPN ---
Progress Note: A&P Assessment and Plan (1) COPD (chronic obstructive pulmonary disease): Code(s): J44.9 - Chronic obstructive pulmonary disease, unspecified Status: Acute Assessment and Plan: Steroids, nebulizers (2) Influenza: Code(s): J11.1 - Influenza due to unidentified influenza virus with other respiratory manifestations Status: Acute Assessment and Plan: Tamiflu (3) Combined pulmonary fibrosis and emphysema (CPFE): Code(s): J43.9 - Emphysema, unspecified; J84.10 - Pulmonary fibrosis, unspecified Status: Acute Assessment and Plan: As above (4) CAD (coronary artery disease): Qualifiers: Coronary Disease-Associated Artery/Lesion type: due to lipid rich plaque Qualified Code(s): I25.10 - Atherosclerotic heart disease of [place] coronary artery without angina pectoris; I25.83 - Coronary atherosclerosis due to lipid rich plaque Code(s): I25.10 - Atherosclerotic heart disease of [place] coronary artery without angina pectoris Status: Acute (5) Alzheimer's dementia: Code(s): G30.9 - Alzheimer's disease, unspecified; F02.80 - Dementia in other diseases classified elsewhere, unspecified severity, without behavioral disturbance, psychotic disturbance, mood disturbance, and anxiety Status: Acute Assessment and Plan: At baseline Plan DVT prophylaxis with Eliquis GI prophylaxis with PPI Code status full code Subjective Date/time seen: 03/16/22 10:31 Objective Data Vital Signs Vital Signs: Vital Signs - 24 hr 03/15/22 12:00 03/15/22 14:00 03/15/22 16:15 Temperature 98.2 F Pulse Rate 100 87 89 Respiratory Rate 20 20 Blood Pressure 152/78 H Pulse Oximetry 95 Oxygen Delivery 03/15/22 20:00 03/15/22 22:00 03/16/22 06:00 Temperature 97.0 F L 97.5 F L Pulse Rate 101 H 88 Respiratory Rate 16 16 Blood Pressure 145/90 H 144/98 H Pulse Oximetry 95 95 Oxygen Delivery Room Air 03/16/22 08:26 03/16/22 08:26 03/16/22 08:37 Temperature Pulse Rate 69 68 Respiratory Rate 22 H 24 H Blood Pressure Pulse Oximetry 92 Oxygen Delivery Room Air 03/16/22 09:45 03/16/22 09:50 03/16/22 10:00 Temperature Pulse Rate 98 109 H 97 Respiratory Rate Blood Pressure Pulse Oximetry 96 93 96 Oxygen Delivery Room Air Room Air Room Air Intake/Output Intake/Output: Intake & Output 03/13/22 03/14/22 03/15/22 03/16/22 23:59 23:59 23:59 23:59 Intake Total 50 1220 640 Output Total 0 0 Balance 50 1220 640 Meds/Results Medications: Active Medications Generic Name Dose Route Start Last Admin Trade Name Freq PRN Reason Stop Dose Admin Amlodipine Besylate 2.5 mg 03/15/22 09:00 03/16/22 09:24 Amlodipine Besylate 2.5 Mg Tablet PO 2.5 mg DAILY NAE Administration Apixaban 5 mg 03/15/22 09:00 03/16/22 09:24 Apixaban 5 Mg Tablet PO 5 mg Q12HR NAE Administration Cyanocobalamin 1,000 mcg 03/15/22 09:00 03/16/22 09:24 Cyanocobalamin 1,000 Mcg Tablet PO 1,000 mcg QAM NAE Administration Donepezil HCl 10 mg 03/15/22 09:00 03/16/22 09:24 Donepezil Hcl 10 Mg Tablet PO 10 mg DAILY NAE Administration Ipratropium [place] 0.5 mg 03/15/22 15:18 03/16/22 08:24 Ipratropium Br 0.02% Inh Soln 0.5 Mg/2.5 Ml Vial INHALATION 0.5 mg Q6HRT NAE Administration Isosorbide Mononitrate 60 mg 03/15/22 09:00 03/16/22 09:24 Isosorbide Mononitrate 60 Mg Tab.Er.24h PO 60 mg DAILY NAE Administration Levalbuterol HCl 0.63 mg 03/15/22 15:18 03/16/22 08:24 Levalbuterol Neb 1.25 Mg/3 Ml INHALATION 0.63 mg Q6HRT NAE Administration Levothyroxine Sodium 150 mcg 03/15/22 06:30 03/16/22 05:39 Levothyroxine Sodium 150 Mcg Tablet PO 150 mcg DAILY@0630 NAE Administration Lisinopril 20 mg 03/15/22 09:00 03/16/22 09:24 Lisinopril 20 Mg Tablet PO 20 mg DAILY NAE Administration Methylprednisolone Sodium Succinate 60 mg 11
--- NOTE | 2022-03-16 12:20 | PM.DS ---
DS: Admitting Diagnosis Discharge Date 03/16/22 Admitting Diagnosis sob DS: Discharge Diagnosis Discharge Diagnosis (1) COPD (chronic obstructive pulmonary disease): Code(s): J44.9 - Chronic obstructive pulmonary disease, unspecified Status: Acute Assessment and Plan: Steroids, nebulizers (2) Influenza: Code(s): J11.1 - Influenza due to unidentified influenza virus with other respiratory manifestations Status: Acute Assessment and Plan: Tamiflu (3) Combined pulmonary fibrosis and emphysema (CPFE): Code(s): J43.9 - Emphysema, unspecified; J84.10 - Pulmonary fibrosis, unspecified Status: Acute Assessment and Plan: As above (4) CAD (coronary artery disease): Qualifiers: Coronary Disease-Associated Artery/Lesion type: due to lipid rich plaque Qualified Code(s): I25.10 - Atherosclerotic heart disease of [place] coronary artery without angina pectoris; I25.83 - Coronary atherosclerosis due to lipid rich plaque Code(s): I25.10 - Atherosclerotic heart disease of [place] coronary artery without angina pectoris Status: Acute (5) Alzheimer's dementia: Code(s): G30.9 - Alzheimer's disease, unspecified; F02.80 - Dementia in other diseases classified elsewhere, unspecified severity, without behavioral disturbance, psychotic disturbance, mood disturbance, and anxiety Status: Acute Assessment and Plan: At baseline Plan DVT prophylaxis with Eliquis GI prophylaxis with PPI Code status full code DS: Summary Hospital Course Hospital Course: 81-year-old male with past medical history significant for Alzheimer's disease, atrial fibrillation, rate controlled anticoagulated, dyslipidemia, COPD/emphysema.? Patient is unable to give any history due to his dementia and altered mental status according to daughter who is at bedside patient has been having shortness of breath and has been sleeping and staying in bed a lot his usually very active with his girlfriend whom he spend Thanksgiving dinner with has had chills and fevers poor appetite.? Oxygen saturation was low as well when daughter checked it at home it was at 89%.? EMS was called and patient was brought to the emergency room? were patient was found to have a temp preliminary workup was significant for patient tested positive for influenza type A. patient is been admitted for further evaluation management and treatment. Patient was placed on Tamiflu. He was given supportive care with steroids and nebulizers. His symptoms resolved and he was discharged in good condition. Time Spent with Patient Time attestation: Total time spent providing and/or coordinating discharge services: Exam Narrative: General: No acute distress, alert and oriented per baseline HEENT: Atraumatic, normocephalic, mucous membranes moist CV: Regular rate and rhythm, S1, S2 Lungs: Clear to auscultation bilaterally, no rales or crackles noted, no wheezes, good air entry Abdomen: Soft, nontender, nondistended Extremities: Normal to inspection Skin: No rashes noted, no lesions or wounds seen Psych: Euthymic, normal affect Discharge Plan Discharge Attending physician on discharge: Alondra Moe Discharging Clinician: Alondra Moe Patient Disposition: Home Health Service Activity: as tolerated Diet: as tolerated Patient Instructions: Antibiotic Form, Influenza (DC), COPD (Chronic Obstructive Pulmonary Disease) (DC) Stand Alone Forms: General Discharge Information Follow-up/Referrals: Galileo Mead DO [Primary Care Provider] - Discharge Medications: New oseltamivir [Tamiflu] 30 mg Capsule 30 mg PO Q12HR 3 Days Qty: 6 0RF prednisone 50 mg tablet 50 mg PO DAILY 4 Days Qty: 4 0RF Continued Eliquis 5 mg tablet 5 mg PO BID Qty: 60 2RF simvastatin 20 mg tablet 40 mg PO DAILY amlodipine 2.5 mg tablet 2.5 mg PO DAILY donepezil [Aricept] 10 mg tablet
== END 2022-03-16 13:00 | disposition home health service (06) | DRG 194 ==
LOC: ANHED 21:34 → ANH3MEDSUR 22:47
PROVIDERS: Emergency Medicine; Admitting Provider Internal Medicine; Emergency Provider Emergency Medicine; PCP Internal Medicine; Visit Provider Student in an Organized Health Care Education/Training Program
DX: J10.1 Influenza due to other identified influenza virus with other respiratory manifestations (principal); I48.20 Chronic atrial fibrillation, unspecified; J43.9 Emphysema, unspecified; J84.10 Pulmonary fibrosis, unspecified; G30.9 Alzheimer's disease, unspecified; F02.80 Dementia in other diseases classified elsewhere, unspecified severity, without behavioral disturbance, psychotic disturbance, mood disturbance, and anxiety; Z20.822 Contact with and (suspected) exposure to COVID-19; Z87.891 Personal history of nicotine dependence
CPT/HCPCS: 36415; 71046; 80048; 83735; 83880; 84484; 85025; 85055; 85610; 85730; 87636; 93005; 94618; 94640; 96365; 96366; 96375; 99285; A9270; C9113; J2930; J3475

== ENCOUNTER 2022-03-22 13:23 | Outpatient (CLI) | payer MEDICARE, OTHER, SELFPAY ==
--- NOTE | ~2022-03-22 | XR_ITS ---
XR chest 2V 03/22/2022 13:49 Indication: Failure Procedure: PA and lateral views of the chest Comparison: 03/14/2022 Findings: Cardiomegaly. Mild interstitial edema. No pneumothorax. There are cholecystectomy clips. No acute osseous abnormality. Impression: 1: Cardiomegaly with mild interstitial edema. Reviewed, dictated and finalized at location A. TER Impression: 1: Cardiomegaly with mild interstitial edema.
[2022-03-22 14:31] LABS: Alanine Aminotransferase 27 U/L (6-50); Albumin Level 3.6 g/dL (3.5-5.1); Alkaline Phosphatase 53 U/L (38-126); Anion Gap 1 mmol/L (8-16); Aspartate Amino Transferase 28 U/L (17-59); Bilirubin,Total 0.7 mg/dL (0.2-1.3); Blood Urea Nitrogen 19 mg/dL (9-20); Calcium 8.1 mg/dL (8.4-10.2); Carbon Dioxide 27 mmol/L (22-30); Chloride 109 mmol/L (98-107); Estimated Glomerular Filt Rate > 60; Glucose 117 mg/dL (65-110); Potassium 3.5 mmol/L (3.4-5.0); Sodium 137 mmol/L (137-145)
[2022-03-22 14:39] LABS: NT Pro B Type Natriuretic Pept 873 pg/mL (5-100)
[2022-03-22 14:57] LABS: Free T4 Free Thyroxine 1.87 ng/mL (0.78-2.19)
== END 2022-03-22 13:24 | disposition home or self-care (01) ==
PROVIDERS: PCP Internal Medicine; Visit Provider Internal Medicine
DX: I50.9 Heart failure, unspecified (principal); Z09 Encounter for follow-up examination after completed treatment for conditions other than malignant neoplasm; E03.9 Hypothyroidism, unspecified; J43.9 Emphysema, unspecified; J84.10 Pulmonary fibrosis, unspecified
CPT/HCPCS: 36415; 71046; 80053; 83880; 84439; 84443

== ENCOUNTER 2022-04-13 12:50 | Outpatient (CLI) | payer MEDICARE, OTHER, SELFPAY ==
[2022-04-13 13:00] VITALS: PULSE 80; O2SAT 92
[2022-04-13 13:02] VITALS: PULSE 108; O2SAT 86
[2022-04-13 13:03] VITALS: O2SAT 87
[2022-04-13 13:04] VITALS: O2SAT 93
[2022-04-13 13:15] VITALS: PULSE 84; O2SAT 92
--- NOTE | 2022-04-13 14:35 | HOMEO2EVAL ---
Evaluation was performed at [facility] Home Oxygen Evaluation RC: Home Oxygen (O2) Evaluation Start: 04/13/22 14:32 Freq: Status: Active Protocol: RPE Activity Type Activity Date Activity User E-sign Co-sign Detail Recorded Client Recorded Date Recorded By Document 04/13/22 13:00 MICHEL [email or web address] 04/13/22 14:35 MICHEL Document 04/13/22 13:02 MICHEL [email or web address] 04/13/22 14:35 MICHEL Document 04/13/22 13:03 MICHEL [email or web address] 04/13/22 14:35 MICHEL Document 04/13/22 13:04 MICHEL [email or web address] 04/13/22 14:35 MICHEL Document 04/13/22 13:15 MICHEL [email or web address] 04/13/22 14:35 MICHEL 04/13/22 04/13/22 04/13/22 13:00 13:02 13:03 Home O2 Evaluation [Oxygen] -Test Phase Resting Exercise Exercise -Oxygen Delivery Room Air Room Air Nasal Cannula -Oxygen Flow Rate (L/min) 1 [Pulse Oximetry] -Pulse Oximetry (90-100 %) 92 86 L 87 L [Pulse Rate] -Pulse Rate (60-100 beats/min) 80 108 H [Exercise] -Ambulation Distance (feet) -Ambulation Distance (meters) [Comments] -Home Oxygen Evaluation Comments [Charges] -Treatment Charges O2 Evaluation - Outpatient 04/13/22 04/13/22 13:04 13:15 Home O2 Evaluation [Oxygen] -Test Phase Exercise Resting -Oxygen Delivery Nasal Cannula Room Air -Oxygen Flow Rate (L/min) 2 [Pulse Oximetry] -Pulse Oximetry (90-100 %) 93 92 [Pulse Rate] -Pulse Rate (60-100 beats/min) 84 [Exercise] -Ambulation Distance (feet) 800 -Ambulation Distance (meters) 243.82 [Comments] -Home Oxygen Evaluation Comments Home O2 required at 2 Liters with activity [Charges] -Treatment Charges
--- NOTE | 2022-04-13 14:36 | PCRCNOTE ---
Home O2 eval done, pt requires 2 liters with activity. faxed to dr office staff to arrange
== END 2022-04-13 12:51 | disposition home or self-care (01) ==
PROVIDERS: PCP Internal Medicine; Visit Provider Internal Medicine Pulmonary Disease
DX: Z87.891 Personal history of nicotine dependence (principal)
CPT/HCPCS: 94618

== ENCOUNTER 2022-11-21 13:37 | Outpatient (CLI) | payer MEDICARE, SELFPAY ==
[2022-11-21 14:27] LABS: Appearance Urine Clear (Clear); Bilirubin Urine Negative (Negative); Blood Urine Negative (Negative); Color Urine Yellow (Yellow); Glucose Urine UA Negative (Negative); Ketones Urine Negative (Negative); Leukocyte Esterase Ur Negative LEU/UL (Negative); Nitrate Urine Negative (Negative); Protein Urine Negative (Negative); Specific Grav Ur 1.018 (1.001-1.035); pH Urine 5.5 (5.0-9.0)
[2022-11-21 14:30] LABS: Add Urine Microscopic? NO
== END 2022-11-21 13:38 | disposition home or self-care (01) ==
PROVIDERS: PCP Nurse Practitioner; Visit Provider Nurse Practitioner
DX: R31.9 Hematuria, unspecified (principal)
CPT/HCPCS: 81003

== ENCOUNTER 2022-11-29 14:02 | Outpatient (CLI) | payer MEDICARE, SELFPAY ==
--- NOTE | ~2022-11-29 | CT_ITS ---
EXAMINATION: CT abdomen pelvis wo/w con DATE: 11/29/2022 15:12 INDICATION: Painless hematuria TECHNIQUE: Computed tomography (CT) of the abdomen and pelvis was performed without and with 100 mL O mnipaque-350 intravenous contrast. Automated exposure control and iterative reconstruction technique were employed. The dose-length product was 2307.47 mGy-cm. COMPARISON: 06/28/2018. FINDINGS: Lower thorax: Interstitial lung disease. Moderate coronary artery calcifications. Mediastinal lymphad enopathy. Liver: Normal. Biliary/Gallbladder: Gallbladder is absent. No bile duct dilation. Pancreas: No mass or duct dilation. Spleen: Normal. Adrenals:No mass. Kidneys: No obstructing calcification. No suspicious mass. Mild bilateral atrophy and moderate bilate ral perinephric stranding. No hydronephrosis. Normal ureters. GI tract: Small hiatal hernia. Mild antral wall edema. Submucosal fat deposition in the stomach. No s mall or large bowel dilation. Normal appendix. Mesentery/Peritoneum: No ascites, mass, or free air. Retroperitoneum: No mass. Atherosclerotic abdominal aortic and/or arterial calcifications.. Small 2.7 cm infrarenal abdominal aortic aneurysm. Pelvis: 1.5 cm bladder wall mass immediately adjacent to the left UVJ. Urinary bladder otherwise norm al. Normal appearing prostate. Moderate right and severe left common femoral arterial stenoses. Soft Tissues: Small uncomplicated fat-containing umbilical hernia. Bones: No acute osseous finding. IMPRESSION: Worsening interstitial lung disease. Mediastinal lymphadenopathy. 1.5 cm bladder wall mass immediately adjacent to the left UVJ, concerning for urothelial malignancy. Recommend urology consultation for cystoscopy. 2.7 cm infrarenal abdominal aortic aneurysm. Reviewed, dictated and finalized at location K. IMPRESSION: Worsening interstitial lung disease. Mediastinal lymphadenopathy. 1.5 cm bladder wall mass immediately adjacent to the left UVJ, concerning for u rothelial malignancy. Recommend urology consultation for cystoscopy. 2.7 cm infrarenal abdominal aortic aneurysm.
[2022-11-29 14:54] LABS: Estimated Glomerular Filt Rate 58
== END 2022-11-29 14:03 | disposition home or self-care (01) ==
PROVIDERS: PCP Nurse Practitioner; Visit Provider Nurse Practitioner
DX: R31.9 Hematuria, unspecified (principal); R59.0 Localized enlarged lymph nodes; J84.9 Interstitial pulmonary disease, unspecified; N32.9 Bladder disorder, unspecified; I71.43 Infrarenal abdominal aortic aneurysm, without rupture
CPT/HCPCS: 74178; Q9967

== ENCOUNTER 2023-04-25 13:35 | Outpatient (CLI) | payer MEDICARE, SELFPAY ==
--- NOTE | ~2023-04-25 | XR_ITS ---
XR chest 2V DATE: 04/25/2023 14:03 INDICATION: Pneumonia TECHNIQUE: 2 views COMPARISON: 2 view chest 12/14/2021 CT chest high resolution scan 06/28/2018 2 view chest FINDINGS: There are diffuse bilateral pulmonary infiltrates, which may be due to pulmonary edema and/ or pneumonia There is mild prominence of fissures which may indicate subpleural edema.. There is aortic calcification. Status post cholecystectomy. IMPRESSION: Diffuse bilateral pulmonary infiltrates, relatively superficial, suggesting congestive ch anges, pulmonary edema. Pneumonia is not excluded Reviewed, dictated and finalized at location B. [employer] IMPRESSION: Diffuse bilateral pulmonary infiltrates, relatively superficial, arteaga ggesting congestive changes, pulmonary edema. Pneumonia is not excluded
== END 2023-04-25 13:36 | disposition home or self-care (01) ==
PROVIDERS: PCP Nurse Practitioner; Visit Provider Nurse Practitioner
DX: J18.9 Pneumonia, unspecified organism (principal); R91.8 Other nonspecific abnormal finding of lung field
CPT/HCPCS: 71046

== ENCOUNTER 2023-05-21 14:34 | Outpatient (CLI) | payer MEDICARE, SELFPAY ==
[2023-05-21 15:08] LABS: Hematocrit 47.1 % (42.0-52.0); Hemoglobin 15.7 g/dL (14.0-18.0); Mean Corpuscular HGB Conc 33.3 g/dl (32-36); Mean Corpuscular Hemoglobin 32.4 pg (26-34); Mean Corpuscular Volume 97.1 fl (80-100); Mean Platelet Volume 10.1 fl (7.4-10.4); Platelet Count Result 173 k/mm3 (150-375); Red Blood Count 4.85 M/mm3 (4.6-6.20); Red Cell Distribution Width 13.9 % (11.5-14.5); White Blood Count 8.5 K/mm3 (4.5-10.0)
[2023-05-21 15:18] LABS: Ammonia < 9 umol/L (9-30)
[2023-05-21 15:19] LABS: Alanine Aminotransferase 17 U/L (6-50); Albumin Level 4.2 g/dL (3.5-5.1); Alkaline Phosphatase 64 U/L (38-126); Anion Gap 4 mmol/L (8-16); Aspartate Amino Transferase 27 U/L (17-59); Bilirubin,Total 1.6 mg/dL (0.2-1.3); Blood Urea Nitrogen 15 mg/dL (9-20); Calcium 9.4 mg/dL (8.4-10.2); Carbon Dioxide 26 mmol/L (22-30); Chloride 109 mmol/L (98-107); Estimated Glomerular Filt Rate 58; Glucose 127 mg/dL (65-110); Potassium 4.1 mmol/L (3.4-5.0); Sodium 139 mmol/L (137-145)
[2023-05-21 15:39] LABS: Appearance Urine Clear (Clear); Bilirubin Urine Negative (Negative); Blood Urine Negative (Negative); Color Urine Dark Yellow (Yellow); Glucose Urine UA Negative (Negative); Ketones Urine Trace mg/dL (Negative); Leukocyte Esterase Ur Negative LEU/UL (Negative); Nitrate Urine Negative (Negative); Protein Urine Negative (Negative); Specific Grav Ur 1.018 (1.001-1.035)
[2023-05-21 15:55] LABS: Add Urine Microscopic? NO
== END 2023-05-21 14:35 | disposition home or self-care (01) ==
LOC: ANHLAB 14:44
PROVIDERS: PCP Nurse Practitioner; Visit Provider Nurse Practitioner
DX: G47.10 Hypersomnia, unspecified (principal); R31.0 Gross hematuria; D61.818 Other pancytopenia; I10 Essential (primary) hypertension
CPT/HCPCS: 36415; 80053; 81003; 82140; 85027

== ENCOUNTER 2023-10-10 13:13 | Outpatient (NON) | payer OTHER, MEDICARE, SELFPAY ==
[2023-10-10 14:23] LABS: Appearance Urine Clear (Clear); Bilirubin Urine Negative (Negative); Blood Urine Negative (Negative); Color Urine Yellow (Yellow); Glucose Urine UA Negative (Negative); Ketones Urine Negative (Negative); Leukocyte Esterase Ur Negative LEU/UL (Negative); Nitrate Urine Negative (Negative); Protein Urine Negative (Negative); Specific Grav Ur 1.012 (1.001-1.035)
[2023-10-10 14:33] LABS: Add Urine Microscopic? NO
== END 2023-10-10 13:14 | disposition home or self-care (01) ==
LOC: HOME HLTH 13:35
PROVIDERS: PCP Nurse Practitioner; Visit Provider Internal Medicine Pulmonary Disease
DX: N39.0 Urinary tract infection, site not specified (principal)
CPT/HCPCS: 81003; 87086